=== PATIENT | female | born 1960 | race Two or more races ===

== ENCOUNTER 2023-11-21 19:15 | Emergency (ER) | payer BC ==
[~2023-11-21] VITALS: Ht 160 cm; Wt 69.9 kg
[2023-11-21 19:20] VITALS: BP 183/90; TEMP 98.4; O2SAT 97
== END 2023-11-21 19:43 | disposition left against medical advice (07) ==
LOC: ER 19:19
DX: R73.9 Hyperglycemia, unspecified (principal); Z53.21 Procedure and treatment not carried out due to patient leaving prior to being seen by health care provider
CPT/HCPCS: 82962-TC